=== PATIENT | male | born 1995 ===

== ENCOUNTER 2025-06-05 06:09 | Day surgery (SDC) | payer OTHER, SELFPAY ==
[2025-05-27 14:03] LABS: Hematocrit 42.2 % (39.0-52.0); Hemoglobin 14.7 g/dL (13.0-18.0); Mean Corp Hgb Conc. 34.8 g/dL (33.0-37.0); Mean Corpuscular Volume 85.4 fL (80.0-94.0); Platelet Count 217 10^3/uL (130-400); Red Cell Dist. Width 11.7 % (11.5-14.5)
[2025-05-27 14:18] VITALS: BMI 28.9
[2025-05-27 14:32] LABS: ALT (SGPT) 19 U/L (0-50); AST (SGOT) 18 U/L (17-59); Albumin 4.5 g/dl (3.5-5.0); Alkaline Phosphatase 40 U/L (38-126); Blood Urea Nitrogen 13 mg/dl (9-20); Calcium 9.9 mg/dl (8.4-10.2); Carbon Dioxide 29 mmol/L (22-30); Chloride 105 mmol/L (98-107); Estimated Creatinine Clearance > 125 ml/min; Glucose 78 mg/dl (70-99); Potassium 4.6 mmol/L (3.5-5.1); Sodium 139 mmol/L (135-145); Total Protein 7.0 g/dl (6.3-8.2); eGFR > 60.00
[2025-06-04 08:18] VITALS: BMI 28.9
[2025-06-05] VITALS (14 sets, daily range): BP systolic 106–142; BP diastolic 65–91; BMI 28.9
[2025-06-05] MEDS: NORMOSOL-R/PLASMALYTE-A 1000 IV (10:05)
[2025-06-05] MEDS: TYLENOL 1000 MG PO (10:09)
[2025-06-05] MEDS: CELEBREX 200 MG PO (10:09)
[2025-06-05] MEDS: LYRICA 150 MG PO (10:10)
[2025-06-05] MEDS: METHOCARBAMOL 1500 MG PO (10:10)
[2025-06-05] MEDS: SUBLIMAZE 25 MCG IV (12:40)
[2025-06-05] MEDS: DILAUDID 0.5 MG IV ×3 (12:51→13:59)
[2025-06-05] MEDS: ZOFRAN 4 MG IV (13:59)
== END 2025-06-05 15:22 | disposition home or self-care (01) ==
LOC: SDS 06:09
PROVIDERS: ATTENDING PHYSICIAN Orthopaedic Surgery Orthopaedic Surgery of the Spine; FAMILY PHYSICIAN Internal Medicine
DX: M51.372 Other intervertebral disc degeneration, lumbosacral region with discogenic back pain and lower extremity pain (principal); M51.27 Other intervertebral disc displacement, lumbosacral region
CPT/HCPCS: 63030; 36415; 72020; 80053; 85027; 87070

== ENCOUNTER 2025-06-07 06:14 | Emergency (ER) | payer OTHER, SELFPAY ==
[2025-06-07 06:16] VITALS: BP 136/93
--- NOTE | 2025-06-07 07:48 | ED.GENMED ---
History of Present Illness
General
Chief Complaint: Back Pain
Source: patient
Exam Limitations: none
Time Seen by Provider: 06/07/25 07:30
History of Present Illness
History of Present Illness:
29-year-old male presents complaining of severe low back pain that radiates into the left buttock. He had L5-S1 discectomy with hemilaminectomy 2 days ago. He states the pain is getting to the point where he is having trouble sitting up or even
rolling over. No urinary retention or incontinence. He has not moved his bowels since surgery does note that he is passing gas. He denies any known chills or vomiting. He has been using his oxycodone, muscle relaxer and Celebrex without any
relief.
Past History
Social History
Tobacco: Non-smoker
Phy Exam
Physical Exam
Physical Exam:
General: Uncomfortable appearing male no acute respiratory distress
HEENT: Normal cephalic atraumatic
Heart: Regular rate and rhythm
Lungs: Clear no wheeze
Skin: Dressing is dry and intact over the lower back. No surrounding erythema
Neurologic exam: Good sensation to the lower legs. Bilateral patellar reflexes are 2+. No obvious strength deficit to the lower extremity
Musculoskeletal exam: Mild diffuse tenderness to the lower lumbar spine
Course
Orders/Labs/Results
Orders:
Orders
06/07/25 07:42
diazePAM [Valium Injection] 5 mg IV NOW STA
06/07/25 07:51
Ketorolac [Toradol] 15 mg IV NOW STA
06/07/25 08:16
Complete Blood Count/With Diff Urgent
Comprehensive Metabolic Panel Urgent
Abnormal Lab Results
06/07/25
08:16
Absolute Monos (auto) 0.9 H 10^3/uL
(0.1-0.6)
Monocytes % 11.1 H %
(1.7-9.3)
BUN 8 L mg/dl
(9-20)
Albumin 5.1 H g/dl
(3.5-5.0)
06/07/25 08:16
06/07/25 08:16
Vital Signs
Initial and Last Documented VS:
Initial Vital Signs
Temp Pulse Resp BP Pulse Ox
100.1 F 109 20 136/93 99
06/07/25 06:16 06/07/25 06:16 06/07/25 06:16 06/07/25 06:16 06/07/25 06:16
Last Documented Vital Signs
Temp Pulse Resp BP Pulse Ox
100.1 F 109 20 136/93 99
06/07/25 06:16 06/07/25 06:16 06/07/25 06:16 06/07/25 06:16 06/07/25 07:51
MDM/Problems Addressed
Differential Diagnosis Includes:
Lower back pain with pain radiating to the left buttock. Recent L5-S1 hemilaminectomy and discectomy. Consider postoperative inflammation versus radiculopathy. Will continue to monitor patient's temperature as his temperature at triage was 100.1.
Check labs. Will treat with Valium. Contacted patient's surgeon, Dr. Brown
*Pulse Oximetry
SaO2: 99
Oxygen Mode of Delivery: Room air
Patient hypoxic: no
*Critical Care Note
Total Time (30-74mins, 75-104mins- exclusive of procedures): Not Applicable
Update Note
Update Note:
Patient received medication here including Toradol and Valium and slept for quite some time. I did discuss his case with his surgeon, Dr. Brown. Dr. Brown stated this is likely expected pain. There is no strength deficit on exam. Dr. Brown did call in
a prescription for steroids form to take. He will continue with the pain medicine and muscle relaxers at home with additional steroids. No red flags to suggest cauda equina or abscess.
ED Attending Note
-
Portions of this chart may have been created with voice recognition software.� Occasional wrong word or��sound alike� substitutions may have occurred due to the inherent limitations of voice recognition software.
Discharge Plan
Departure
Patient Disposition: Home (Routine Discharge)
Date of Disposition: 06/07/25
Time of Disposition: 09:49
Patient with high blood pressure during this ER visit?: No
Discharge Problem:
Back pain
Instructions: Low Back Pain (DC)
Prescriptions:
No Action
minoxidil 2.5 mg Tablet
2.5 mg PO QPM
acetaminophen [Acetaminophen Extra Strength] 500 mg Tablet
1,000 mg PO Q6H PRN (Reason: pain)
finasteride 1 mg Tablet
1 mg PO QPM
Referrals:
Cathy Oseguera MD [Family Provider, Internal Medicine]
Activity Restrictions/Additional Instructions:
Continue with your pain medicine at home. Your surgeon has called in a prescription for steroids to add. Follow-up with the surgeon. Return if needed otherwise
Interventions
Interventions:
*Risk Screen - Suicide Last Done: 06/07/25 06:16
*General Assessment Last Done: 06/07/25 06:16
*Neglect/Abuse Screening Last Done: 06/07/25 06:16
ED-Musculoskeletal Assessment Last Done: 06/07/25 07:26
Discharge Date and Time
Print Language: AUSTR[place]
[2025-06-07] MEDS: VALIUM INJECTION 5 MG IV (08:00)
[2025-06-07] MEDS: TORADOL 15 MG IV (08:00)
[2025-06-07 08:23] LABS: Hematocrit 40.3 % (39.0-52.0); Hemoglobin 14.0 g/dL (13.0-18.0); Mean Corp Hgb Conc. 34.7 g/dL (33.0-37.0); Mean Corpuscular Volume 84.8 fL (80.0-94.0); Nucleated Red Blood Cells % 0 % (-); Platelet Count 204 10^3/uL (130-400); Red Cell Dist. Width 11.7 % (11.5-14.5)
[2025-06-07 08:30] VITALS: BP 124/79
[2025-06-07 08:42] LABS: ALT (SGPT) 25 U/L (0-50); AST (SGOT) 26 U/L (17-59); Albumin 5.1 g/dl (3.5-5.0); Alkaline Phosphatase 49 U/L (38-126); Blood Urea Nitrogen 8 mg/dl (9-20); Calcium 9.8 mg/dl (8.4-10.2); Carbon Dioxide 26 mmol/L (22-30); Chloride 106 mmol/L (98-107); Glucose 91 mg/dl (70-99); Potassium 4.1 mmol/L (3.5-5.1); Sodium 139 mmol/L (135-145); Total Protein 7.6 g/dl (6.3-8.2); eGFR > 60.00
[2025-06-07 09:57] VITALS: BP 124/79; BMI 30.7
== END 2025-06-07 09:55 | disposition home or self-care (01) ==
LOC: EMR 06:14
PROVIDERS: Physician Assistant; EMERGENCY PHYSICIAN Emergency Medicine; FAMILY PHYSICIAN Internal Medicine
DX: M54.9 Dorsalgia, unspecified (principal)
CPT/HCPCS: 99284; 96374; 96375; 80053; 85025